=== PATIENT | female | born 1970 | race African-American/Black ===

== ENCOUNTER 2018-04-13 06:46 | Emergency (ER) | payer BC ==
[~2018-04-13] VITALS: Ht 170.2 cm; Wt 83.0 kg
[2018-04-13 07:38] LABS: ABSOLUTE EOSINOPHILS 0.3 thou/uL (0.0-0.7); ABSOLUTE LYMPHOCYTES 1.4 thou/uL (0.8-5.3); ABSOLUTE MONOCYTES 0.3 thou/uL (0.0-1.2); ABSOLUTE NEUTROPHILS 1.6 thou/uL (1.6-8.1); EOSINOPHILS 8.2 %; HEMATOCRIT 33.6 % (37.0-47.0); HEMOGLOBIN 10.7 gm/dL (12.0-15.0); LYMPHOCYTES 39.2 %; MCH 23.4 pg (26.0-34.0); MCHC 31.8 g/dL (28.0-37.0); MCV 73.7 fL (80.0-100.0); MONOCYTES 6.9 %; NUCLEATED RBCS 0 /100WBC; PLATELET COUNT* 276 thou/uL (150-400); POLYS 44.7 %; RBC 4.57 mil/uL (4.20-5.00); RDW-CV 20.6 % (10.5-14.5); WBC 3.6 thou/uL (4.0-11.0)
[2018-04-13 07:44] LABS: CALCIUM 8.4 mg/dL (8.5-10.1); CREATININE 0.9 mg/dL (0.6-1.3); POTASSIUM 3.3 mmol/L (3.5-5.1)
[2018-04-13 07:54] LABS: ALBUMIN 3.3 g/dL (3.4-5.0); TOTAL BILIRUBIN 0.4 mg/dL (<0.1-1.0); TOTAL PROTEIN 7.2 g/dL (6.4-8.2)
[2018-04-13] MEDS ORDERED: NORVASC2.5 MG PO (07:59)
[2018-04-13 08:08] VITALS: BP 177/107
[2018-04-13 08:42] LABS: ANISOCYTOSIS 1+; MICROCYTES 1+
--- NOTE | 2018-04-14 13:34 | EKG ---
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
== END 2018-04-13 08:09 | disposition home or self-care (01) ==
LOC: M.ERS 06:46
PROVIDERS: Emergency Medicine
DX: I10 Essential (primary) hypertension (principal); Z88.6 Allergy status to analgesic agent